=== PATIENT | male | born 1980 | race Caucasian/White ===

== ENCOUNTER → 2018-01-23 10:04 | Outpatient (CLI) | payer MEDICARE, MEDICAID, SELFPAY ==
--- NOTE | 2018-01-23 10:13 | DI.RAD.S_ITS ---
PROCEDURE: XR HAND LT MIN 3V INDICATIONS: left wrist pain TECHNIQUE: 3 views of the hand(s) acquired. COMPARISON: [facility], CR, XR WRIST LT MIN 3V, 01/23/2018, 10:15. FINDINGS: Bones: No hand bone fractures or dislocations. Carpal bones are normally aligned. No suspicious bony lesions. Joint spaces appear maintained. There is a linearity in the ulnar styloid process, possible fracture. Soft tissues: No suspicious soft tissue calcifications. IMPRESSION: Negative for fracture of the hand bones. Questionable nondisplaced fracture ulnar styloid process. Dictated by: Jd Uriostegui M.D. on 01/23/2018 at 10:33 Approved by: Jd Uriostegui M.D. on 01/23/2018 at 10:37
--- NOTE | 2018-01-23 10:13 | DI.RAD.S_ITS ---
PROCEDURE: XR WRIST LT MIN 3V INDICATIONS: left wrist pain TECHNIQUE: 4 views of the wrist were acquired. COMPARISON: None. FINDINGS: Bones: No radial or carpal fractures or dislocations. There is a radiolucent cleft in the ulnar styloid process that may represent an incomplete fracture but is indeterminate, no overlying soft tissue swelling seen. Chronicity therefore is unknown. No suspicious bony lesions. Scaphoid view: No scaphoid fracture Soft tissues: No suspicious soft tissue calcifications. IMPRESSION: Questionable lucency in the ulnar styloid process, possibly residual of previous trauma. Correlate clinically for point tenderness. Dictated by: Jd Uriostegui M.D. on 01/23/2018 at 10:37 Approved by: Jd Uriostegui M.D. on 01/23/2018 at 10:40
== END ==
PROVIDERS: Visit Provider Physician Assistant
DX: M25.532 Pain in left wrist (principal); M79.642 Pain in left hand
CPT/HCPCS: 73110; 73130

== ENCOUNTER → 2018-01-23 | Outpatient (CLI) | payer MEDICARE, MEDICAID, SELFPAY | LOC: DI 10:01 | PROVIDERS: Visit Provider Physician Assistant | DX: M25.532 Pain in left wrist (principal) ==